=== PATIENT | female | born 1960 | race Caucasian/White ===

== ENCOUNTER → 2017-04-06 | Day surgery (SDC) | payer BC ==
[~2017-04-06] MED LIST: Lidocaine 1% 20 ML MDV ONE
--- NOTE | 2017-04-14 19:07 | OR ---
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 SURGEON: Danny Dalton MD PROCEDURE: ENDOVENOUS ABLATION, INCOMPETENT E COMMERCE DIRECTOR X1, RIGHT LOWER EXTREMITY WITH RFS CATHETER. ANESTHESIA: Local with tumescent. COMPLICATIONS: None. SPECIMEN: None. FINDINGS: Successful [employer] incompetent project construction manager x1, right lower extremity. INDICATIONS: The patient has a long-standing history of venous insufficiency and is status post prior vein stripping. She continues to be symptomatic with painful varicose veins and ultrasound confirms incompetent perforators on right lower extremity. We elected to proceed with ablation. DESCRIPTION OF PROCEDURE: The patient was brought to the operating room and placed in supine position. Ultrasound was used to document the location of 3 separate incompetent perforators in the right lower extremity and diagrammed in the overlying skin along with the access site. The entire limb was prepped and draped in sterile fashion. The 1st project construction manager was in the mid thigh, it was very difficult to reach and very small and its caliber was about 2 mm, and it did not lead to any obvious veins, and we elected to not ablate this one. The 2nd project construction manager was in the distal thigh above the knee, approximately 8 cm. The access site was anesthetized with 1% lidocaine. A small incision was made with 11 blade scalpel and the RFS catheter was inserted under ultrasound guidance, advancing the incompetent project construction manager, position was verified via ultrasound and kept at least 0.5 cm away from the deep venous system. Tumescent anesthesia was infiltrated around the vein in usual fashion. After adequate tumescent was noted, impedance on the catheter was low well below 180, we elected to treat with ablation in usual fashion. Four-quadrant treatment was accomplished in zone 1 in usual fashion without difficulty. We did a pullback treatment of over approximately 1 minute for a total treatment time of 4 minutes and 59 seconds. The catheter was removed. The incision was closed with Steri-Strips and the patient tolerated it well. The 2nd project construction manager with documented reflux was noted in the lower calf area. We did anesthetize this area to 1% lidocaine, made a small incision with 11 blade scalpel. We did insert RFS catheter to try to insert into this project construction manager, it was a very short and irregularly aligned project construction manager. After 2 unsuccessful attempts to access, we elected to stop the procedure at that point. RFS catheter was removed and the skin was closed with the Steri-Strips. Total treatment time was 5 minutes. A total of 6 mL of tumescent was used. The patient was stable in recovery room. JAYLON/EDYTA /[id number]
== END ==
LOC: CC.SDS 06:31
PROVIDERS: ATTEND Family Medicine
DX: I83.811 Varicose veins of right lower extremity with pain (principal); J30.9 Allergic rhinitis, unspecified; M19.90 Unspecified osteoarthritis, unspecified site; M71.22 Synovial cyst of popliteal space [Baker], left knee; D23.60 Other benign neoplasm of skin of unspecified upper limb, including shoulder; E78.5 Hyperlipidemia, unspecified; I10 Essential (primary) hypertension; M85.80 Other specified disorders of bone density and structure, unspecified site; J01.90 Acute sinusitis, unspecified; E04.1 Nontoxic single thyroid nodule; B37.3 Candidiasis of vulva and vagina; E55.9 Vitamin D deficiency, unspecified; B37.9 Candidiasis, unspecified; F17.200 Nicotine dependence, unspecified, uncomplicated; Z79.899 Other long term (current) drug therapy; Z79.82 Long term (current) use of aspirin; Z90.49 Acquired absence of other specified parts of digestive tract; Z90.89 Acquired absence of other organs
CPT/HCPCS: 36475; 36476; A4216

== ENCOUNTER → 2017-05-11 | Day surgery (SDC) | payer BC ==
[~2017-05-11] MED LIST changes: +ALPRAZolam 0.25 MG Tab ONE; +ALPRAZolam 0.25 MG Tab PO ONE
--- NOTE | 2017-05-15 08:15 | OR ---
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 SURGEON: Danny Dalton MD PROCEDURE: ENDOVENOUS ABLATION, INCOMPETENT WOOL SHEARER X1 LEFT LOWER EXTREMITY WITH RFS CATHETER. ANESTHESIA: Local with tumescent. COMPLICATIONS: None. SPECIMEN: None. FINDINGS: Successful ablation incompetent equipment installer x1 left lower extremity. INDICATIONS: The patient has long-standing history of venous insufficiency and has had prior vein stripping. Venous insufficiency study confirms incompetent equipment installer in her left thigh giving rise to large and painful varicosities. She elects to proceed with ablative procedure. DESCRIPTION OF PROCEDURE: The patient was brought to the operating room and placed in supine position. Ultrasound was used to document the location of the incompetent equipment installer in the left lower thigh and diagrammed on the overlying skin along with the access site. The entire limb was prepped and draped in sterile fashion. Access site was then anesthetized with 1% lidocaine. A small incision made with #11 blade scalpel and the RFS catheter was inserted under ultrasound guidance, advanced into the incompetent equipment installer without complication, position was verified via ultrasound and we kept this well over 0.5 cm away from the deep venous system. The tumescent anesthesia was infiltrated around the vein in usual fashion. After adequate tumescent was noted, impedance on the catheter was approximately 130. We treated with ablation in usual fashion with compression and 4-quadrant treatment in zone 1 in usual fashion without difficulty. Pullback over 1 minute for a total treatment time of 5 minutes was accomplished. Catheter was removed and the incision was closed with Steri-Strips. The patient tolerated it well. Repeat ultrasound confirmed successful treatment of the incompetent equipment installer without any extension in the deep venous system. Total treatment time was 5 minutes with 20 mL of tumescent used. The patient was stable in the recovery room and doing fine. JAYLON/EDYTA /[id number]
== END ==
LOC: CC.SDS 06:45
PROVIDERS: ATTEND Family Medicine
DX: I83.812 Varicose veins of left lower extremity with pain (principal); I87.2 Venous insufficiency (chronic) (peripheral)
CPT/HCPCS: 36475; A9270; A4216

== ENCOUNTER 2024-02-23 08:07 | Day surgery (SDC) | payer MEDICARE, OTHER ==
[2024-02-23] MEDS: Lactated Ringers 1,000 ML IV SCH (08:34)
[2024-02-23] MEDS ORDERED: fentaNYL 50 MCG/ML SDV ONE ×2 (09:05)
[2024-02-23] MEDS ORDERED: Ketamine 200 MG/20 ML MDV ONE (09:05)
[2024-02-23] MEDS ORDERED: Propofol 200 MG/20 ML SDV ONE ×2 (09:05)
[2024-02-23] MEDS ORDERED: ePHEDrine 50 MG/ML SDV ONE (09:05)
[2024-02-23] MEDS ORDERED: Midazolam 1 MG/ML 2 ML SDV ONE (09:05)
== END 2024-02-23 10:27 | disposition home or self-care (01) ==
LOC: CC.SDS 08:07
PROVIDERS: ATTEND Family Medicine
DX: Z12.11 Encounter for screening for malignant neoplasm of colon (principal); Q43.8 Other specified congenital malformations of intestine; E78.5 Hyperlipidemia, unspecified; I10 Essential (primary) hypertension; F17.200 Nicotine dependence, unspecified, uncomplicated; Z79.82 Long term (current) use of aspirin; Z79.899 Other long term (current) drug therapy
CPT/HCPCS: J2250; J2704; J3010; J3490; J7120